=== PATIENT | female | born 1995 | race Caucasian/White ===

== ENCOUNTER → 2019-09-30 08:59 | Outpatient (CLI) | payer BC, SELFPAY ==
--- NOTE | 2019-09-30 | FL_ITS ---
PROCEDURE: FL UPPER GI W AIR CLINICAL INDICATION: Abdominal pain COMPARISON: No exams were available for comparison TECHNIQUE: FLUOROSCOPY TIME : 1 minutes and 17 seconds FINDINGS: The esophagus, stomach, and duodenum have an unremarkable appearance.There is no evidence of hiatal hernia. No ulcer or mass evident. No mucosal abnormalities apparent. There is normal peristalsis. The duodenal C-loop is nondisplaced. IMPRESSION: Negative upper GI Dictated by: James Watt MD 09/30/2019 14:25 Electronically signed by James Watt MD in [place] 09/30/2019 14:25
--- NOTE | 2019-09-30 | FL_ITS ---
PROCEDURE: FL BARIUM SWALLOW MODIFIED CLINICAL INDICATION: Difficulty swallowing COMPARISON: No exams were available for comparison TECHNIQUE: Patient administered varying consistencies of barium contrast, while viewed in lateral position under real-time fluoroscopy with cine recording. FLUOROSCOPY TIME:1 minutes The study was performed in conjunction with speech pathologist. Please see that report & recommendations. FINDINGS: Patient was given varying consistencies of barium. No aspiration or penetration. Normal bolus formation with no evidence of delay or residual. IMPRESSION: Unremarkable modified barium swallow. Please see speech pathologist report and recommendations. Dictated by: James Watt MD 10/01/2019 08:59 Electronically signed by James Watt MD in [place] 10/01/2019 08:59
--- NOTE | 2019-09-30 11:24 | HMH.SLMBS2 ---
Speech & Language Evaluation Speech/Language Mod Barium Swallow Start: 09/30/19 11:06 Freq: once Status: Complete Protocol: Document 09/30/19 11:06 JAMEL (Rec: 09/30/19 11:20 JAMEL [id number]) General Information General Current Food Consistancy Regular Dentition Good Dentition Oxygen Status Room Air Facial Symmetry Symmetrical Patient Orientation Person,Place,Time,Situation Ability to Follow Directions Excellent Communication Ability No Impairment MBS Recommendations Diet Dietary Recommendations Regular,Thin Liquids Treatment/Strategies Strategy/Precaution Recommend Alternate Liquids/Solids Referrals/Other Other Recommendations Patient was advised to alternate solids and liquid to aid in discomfort and hard or crunchy food to go down with less discomfort; No aspiration was observed; Mod Barium Swallow Impressions Summary and Impressions Oral Phase Impression No Impairment (WFL) Oral Phase Summary Within functional limits; Pharyngeal Phase Impression No Impairment (WFL) Pharyngeal Phase Summary Within functional limits; Speech/Language MBS Assessment/Goals/Plan Assessment Date of Evaluation: 09/30/19 Evaluation Type Initial Certification Assessment/Problems Patient reports having pain in chest and when swallowing since being on vacation about a week ago; She reports drinking with friends prior to the onset of symptoms; Denies vomiting, denies injury to swallowing mechanism; Reports that symptoms are like acid reflux was prescribed omeprosol for refulx and has seen improvment of symptoms but not completely resolved; Does Patient Qualify for Service No Qualify/Failure Comment Patient did not present with any signs of dysphagia during this study; Recommendations PHYSICIAN CERTIFICATION: The specified therapy services are required, authorized, and reviewed every 30 days. Diet Recommendations Normal Liquid Type Recommendations Normal/Thin Plan Pt/Guardian verbally ack understanding Yes of dx/prognosis/goals Pt/Guardian verbally ack understanding Yes of/consent to tx prog G -code Required No Education Instru
== END ==
PROVIDERS: PCP Internal Medicine Adolescent Medicine; Visit Provider Internal Medicine Adolescent Medicine
DX: R13.10 Dysphagia, unspecified (principal); R13.14 Dysphagia, pharyngoesophageal phase
CPT/HCPCS: 70371; 74246; 92611

== ENCOUNTER → 2020-09-01 15:50 | Outpatient (POV) | payer BC, SELFPAY | PROVIDERS: Visit Provider Dermatology | DX: Z00.00 Encounter for general adult medical examination without abnormal findings (principal) ==

== ENCOUNTER → 2020-10-13 16:00 | Outpatient (POV) | payer BC, SELFPAY | PROVIDERS: Visit Provider Dermatology | DX: Z00.00 Encounter for general adult medical examination without abnormal findings (principal) ==